=== PATIENT | male | born 1990 | race Asian ===

== ENCOUNTER 2023-09-29 18:26 | Emergency (ER) | payer MEDICAID ==
[~2023-09-29] VITALS: Ht 185.4 cm; Wt 95.5 kg
[~2023-09-29 18:26] MED LIST: NO HOME MEDS
[2023-09-29 19:29] LABS: BILIRUBIN,URINE NEGATIVE (Neg); CLARITY,URINE CLEAR (Clear); COLOR,URINE STRAW (Yellow); GLUCOSE, URINE NEGATIVE (Neg); KETONES,URINE NEGATIVE (Neg); LEUKOCYTE ESTERASE ,URINE NEGATIVE (Neg); NITRITES, URINE NEGATIVE (Neg); OCCULT BLOOD,URINE MODERATE (Neg); PH,URINE 6.5 (4.8-8.0); PROTEIN,URINE NEGATIVE (Neg); UROBILINOGEN,URINE 0.2 E.U/dL (0.2-1.0)
[2023-09-29 19:30] LABS: UA COLLECTION TYPE CLN CATCH MIDSTREAM
[2023-09-29 19:41] LABS: MUCUS STRANDS NONE SEEN /LPF (Neg); RBC,URINE 50-100 /HPF (0-2); SQUAMOUS EPITHELIAL CELL,UR FEW /LPF (FEW)
[2023-09-29 19:42] LABS: BACTERIA,URINE NONE SEEN /HPF (Neg); WBC,URINE NONE SEEN /HPF (0-4)
[2023-09-29 19:53] LABS: BASOPHILS % (AUTO) 0.4 % (0-1); EOSINOPHILS # (AUTO) 0.4 X10'3 (0-0.9); EOSINOPHILS % (AUTO) 5.4 % (0-6); HEMATOCRIT 44.2 % (42.0-52.0); HEMOGLOBIN 15.2 g/dl (14.0-17.9); LYMPHOCYTES # (AUTO) 1.2 X10'3 (1.1-4.8); LYMPHOCYTES % (AUTO) 15.6 % (21-51); MEAN CORPUSCULAR HEMOGLOBIN 29.5 PG (27.0-31.0); MEAN CORPUSCULAR HGB CONC 34.4 g/dL (33.0-36.5); MEAN CORPUSCULAR VOLUME 85.7 FL (78-98); MEAN PLATELET VOLUME 7.4 FL (7.4-10.4); MONOCYTES # (AUTO) 0.5 X10'3 (0-0.9); NEUTROPHILS # (AUTO) 5.4 X10'3 (1.8-7.7); NEUTROPHILS % (AUTO) 71.6 % (42-75); PLATELET COUNT 257 X10'3 (140-440); RED BLOOD COUNT 5.16 X10'6 (4.70-6.10); RED CELL DISTRIBUTION WIDTH 13.2 % (11.5-14.5); WHITE BLOOD COUNT 7.6 X10'3 (4.5-11.0)
[2023-09-29 20:05] VITALS: BP 140/88; PULSE 53; RESP 16; O2SAT 99
[2023-09-29 20:11] LABS: ALANINE AMINOTRANSFERASE 29 U/L (12-78); ALBUMIN/GLOBULIN RATIO 1.1 (1.1-1.5); ALKALINE PHOSPHATASE 53 IU/L (46-116); ANION GAP 7 (8-16); ASPARTATE AMINO TRANSFERASE 22 U/L (10-37); BILIRUBIN,TOTAL 0.6 MG/DL (0.1-1.0); BLOOD UREA NITROGEN 13 MG/DL (7-18); BUN/CREATININE RATIO 11.1 (10.0-20.0); CHLORIDE 103 MMOL/L (99-107); CREATININE 1.17 MG/DL (0.60-1.10); GLUCOSE 100 MG/DL (70-104); LIPASE 98 U/L (16-77); POTASSIUM 3.9 MMOL/L (3.5-5.1); SODIUM 139 MMOL/L (135-145); TOTAL CARBON DIOXIDE 29.1 MMOL/L (24-32); TOTAL PROTEIN 7.8 G/DL (6.4-8.2); eCRCL 103 ML/MIN; eGFR 73 ML/MIN
[2023-09-29] MEDS: normal saline 1000ml 1,000 ML IV ONE (20:44)
[2023-09-29 21:10] VITALS: TEMP 98.4
== END 2023-09-29 21:13 | disposition home or self-care (01) ==
LOC: ER 18:27
DX: N17.9 Acute kidney failure, unspecified (principal); N20.0 Calculus of kidney
CPT/HCPCS: 36415; 74176; 80053; 81001; 83605; 83690; 85025; 87040; 99284

== ENCOUNTER 2024-07-26 04:26 | Emergency (ER) | payer MEDICAID ==
[~2024-07-26] VITALS: Ht 188 cm; Wt 93.3 kg
[2024-07-26] MEDS ORDERED: VALA100031 PO (05:00)
[2024-07-26] MEDS: acetaminophen 325mg tablet PO ONE (05:14)
[2024-07-26] MEDS: ibuprofen tablet 400 MG TABLET PO ONE (05:15)
[2024-07-26 05:30] VITALS: BP 138/89; PULSE 60; RESP 14; TEMP 97.9; O2SAT 97
== END 2024-07-26 05:32 | disposition home or self-care (01) ==
LOC: ER 04:26
DX: B02.9 Zoster without complications (principal)
CPT/HCPCS: 99283